=== PATIENT | female | born 1970 | race Hispanic/Latino ===

== ENCOUNTER 2020-03-29 09:34 | Outpatient (CLI) | payer BC ==
[2020-03-29 23:46] LABS: SARS-CoV-2 MS2 Positive; SARS-CoV-2 N Gene Negative; SARS-CoV-2 S Gene Negative; SARS-CoV-2 by NAA Not Detected (NotDetected); SARS-CoV-2 orf1ab Negative
== END 2020-03-29 09:35 | disposition home or self-care (01) ==
LOC: LABBT 09:34
PROVIDERS: ATTEND Orthopaedic Surgery
DX: Z01.812 Encounter for preprocedural laboratory examination (principal); S52.502A Unspecified fracture of the lower end of left radius, initial encounter for closed fracture; Z20.828 Contact with and (suspected) exposure to other viral communicable diseases
CPT/HCPCS: 87635; U0003

== ENCOUNTER 2020-04-01 08:12 | Day surgery (SDC) | payer BC ==
[2020-03-31 09:28] VITALS: BMI 31.1
[2020-04-01] MEDS ORDERED: Fentanyl 100 MCG/2 ML VIAL ONE ×3 (09:00→11:38)
[2020-04-01] MEDS ORDERED: Midazolam HCl 2 mg/2 ml Vial ONE (09:00)
[2020-04-01] MEDS ORDERED: Fentanyl 100 MCG/2 ML VIAL IV PRN (10:14)
[2020-04-01] MEDS ORDERED: Promethazine HCl 25 MG/ML VIAL IM PRN (10:15)
[2020-04-01] MEDS ORDERED: Ondansetron PF 4 MG/2 ML Vial IVP PRN (10:15)
[2020-04-01] MEDS ORDERED: HYDROcodone/Acetaminophen 10/325 mg Tablet PO PRN ×2 (10:15)
[2020-04-01] MEDS ORDERED: traMADol HCl 50 MG TAB PO PRN ×2 (10:15)
[2020-04-01] MEDS ORDERED: Zolpidem Tartrate 5 MG TAB PO PRN (10:15)
[2020-04-01] MEDS ORDERED: Ropivacaine 0.2% 550 ML 550 ML NERVE BLCK SCH (10:15)
[2020-04-01] MEDS ORDERED: Lidocaine 1% PF 5 ML VIAL ONE (10:17)
[2020-04-01] MEDS ORDERED: PROPOFOL 200 MG/20 ML VIAL ONE (10:17)
[2020-04-01] MEDS ORDERED: Dexamethasone 20 MG/5 ML VIAL ONE (10:17)
[2020-04-01] MEDS ORDERED: Ondansetron PF 4 MG/2 ML Vial ONE (10:17)
[2020-04-01] MEDS ORDERED: Ropivacaine 0.2% HCl/PF (40 MG/20 ML VIAL) ONE (10:17)
[2020-04-01] MEDS ORDERED: Ketorolac Tromethamine 30 MG/ML VIAL ONE (10:17)
[2020-04-01] MEDS ORDERED: Ropivacaine 0.5% HCl/PF (150 MG/30 ML VIAL) ONE (10:17)
--- NOTE | 2020-04-01 19:10 | RAD ---
EXAM: 2 views of the left wrist HISTORY: Wrist pain COMPARISON: 03/26/2020 FINDINGS: 2 limited intraoperative fluoroscopic views of the left wrist shows the patient is status p ost ORIF of the distal radius fracture with a plate and screws. An associated ulnar styloid process fracture is seen. There may be slight widening of the scapholunate interval. IMPRESSION: Status post ORIF of distal radius fracture.
--- NOTE | 2020-04-02 09:23 | OP ---
DATE OF PROCEDURE: 04/01/2020 POSTOPERATIVE DIAGNOSIS: Left intra-articular distal radius fracture (greater than three fragments). POSTOPERATIVE DIAGNOSIS: Left intra-articular distal radius fracture (greater than three fragments). PROCEDURE PERFORMED: Open reduction and internal fixation of left distal radius. ANESTHESIA: General. INSURANCE EXECUTIVE: Claudia Kong PA-C. TOURNIQUET TIME: 42 minutes at 250 mmHg. ESTIMATED BLOOD LOSS: Less than 5 mL. IMPLANTS: Synthes 2.4 mm variable angle LCP 2 column plate. COMPLICATIONS: None. DRAINS: None. SPECIMEN: None. OUTCOME: Satisfactory. INDICATIONS FOR PROCEDURE: The patient is a 49-year-old lady status post ground level fall sustaining a distal radius fracture on the left side. After discussion with the patient including risks and benefits, we decided to proceed with open reduction and internal fixation due to the intra-articular nature of this fracture as well as the comminution. Informed consent has been obtained. I believe all questions answered. DESCRIPTION OF PROCEDURE: The patient was brought to the operating room and a time-out performed followed by general anesthesia. Next patient was positioned supine on the OR table with the left arm on an armboard and then a sterile prep and drape performed of this left upper extremity. The limb was then exsanguinated with Esmarch bandage, tourniquet inflated to 250 mmHg. Next, a volar radial skin incision was made after skin was sharply incised. Dissection was carried down to the underlying flexor carpi radialis. The incision was made just to the radial border of this tendon through the fascia exposing the underlying flexor digitorum. While my assistant hvac mechanic retracted the flexor digitorum, I isolated and protected the radial nerve and artery to the radial border of the wound. At this time, a Weitlaner was then placed in the wound. My assistant hvac mechanic then provided further retraction of the neurovascular bundle while I sharply released the pronator quadratus off the radial border of the distal radius and reflected it to the midline exposing the underlying fracture. Next, with direct visualization as well as C-arm guidance, reduction of the fracture was performed. This was found to be very unstable and very comminuted fracture. Once the radial length and volar tilt was restored, a volar plate was applied to the distal radius with myself holding the plate in place while my assistant hvac mechanic provided screw stabilization with a cortical screw proximal to the fracture. Once stabilized, AP, lateral and C-arm images were obtained and some minor adjustment of the fracture was performed. Next, a total of 4 locking screws were placed in the horizontal limb of the plate just below the articular surface. Following this, 2 additional cortical screw cortical screws were placed proximally while my assistant hvac mechanic provided retraction of the neurovascular bundle. At the completion of this, final AP and lateral C-arm images were obtained that showed presybeterian of radial length, volar tilt and radial inclination. There was just a slight 1-2 mm gap of the main fracture line at the level of the scapholunate fossa. The wound was then irrigated with bulb syringe, closed in layers with 0 Vicryl deep followed by 2-0 Vicryl, then nylon for the skin. A Xeroform gauze Webril and fiberglass dressing was then applied to the wrist. The tourniquet was then let down and patient was transferred to recovery room in stable condition. There were no complications. She tolerated the procedure well. Job ID: [id number]
== END 2020-04-01 14:35 | disposition home or self-care (01) ==
LOC: SDC 08:12
PROVIDERS: ATTEND Orthopaedic Surgery
PROC: 3E0T3BZ Introduction of Anesthetic Agent into Peripheral Nerves and Plexi, Percutaneous Approach (ICD-10-PCS; principal; 2020-04-01)
PROC: 0PSJ04Z Reposition Left Radius with Internal Fixation Device, Open Approach (ICD-10-PCS; principal; 2020-04-01)
DX: S52.572A Other intraarticular fracture of lower end of left radius, initial encounter for closed fracture (principal); G89.18 Other acute postprocedural pain
CPT/HCPCS: 76000; A4306; C1713; J0690; J1100; J1885; J2250; J2405; J2704; J2795; J3010